=== PATIENT | male | born 1990 | race Caucasian/White ===

== ENCOUNTER 2021-03-01 10:13 | Emergency (ER) | payer BC, SELFPAY ==
--- NOTE | ~2021-03-01 | US_ITS ---
EXAMINATION: US SOFT TISSUE NECK CLINICAL INFORMATION: Left-sided painful left neck lump COMPARISON: None TECHNIQUE: Ultrasound of the left neck soft tissues is performed with high- frequency delgado-scale imaging and color Doppler. FINDINGS: There are multiple left cervical lymph nodes seen. The larger lymph nodes are prominent in size. The largest lymph node measures 2.3 x 0.8 x 1.2 cm in the lateral posterior lower neck. Lymph nodes demonstrate normal ultrasound morphology and flow. US/US soft tiss head and/or neck IMPRESSION: Multiple left cervical lymph nodes. The larger lymph nodes are prominent in size and demonstrate normal ultrasound morphology. Infectious, inflammatory and neoplastic processes should be considered. Management should be determined on a clinical basis.
[2021-03-01 10:32] VITALS: BP 128/78; PULSE 83; RESP 16; TEMP 36.9; O2SAT 100; BMI 29.8
--- NOTE | 2021-03-01 11:07 | ED_ITS ---
HPI - General Adult General Chief complaint: General Medical Stated complaint: lump on neck Time Seen by Provider: 03/01/21 11:06 Source: patient Mode of arrival: ambulatory Limitations: no limitations History of Present Illness HPI narrative: 30-year-old male presents for concerns of lumps on the left side of his neck. He noticed these lumps a few days ago, and when he touches them they are painful. Patient was seen in [facility] and found to be severely anemic 6 days ago. Patient tells me his hemoglobin at that time was 5.9, and he was transfused with 2 units of blood. States he has a primary care provider in [facility], and has an appointment with them in 4 days. Patient denies chest pain, shortness of breath, upper respiratory infection symptoms, he is being worked up for the etiology of his anemia by his PCP Related Data Allergies Allergy/AdvReac Type Severity Reaction Status Date / Time No Known Allergies Allergy Verified 03/01/21 10:31 Review of Systems Constitutional: Constitutional: Denies chills, Denies fatigue, Denies fever(s), Denies headache(s), Denies malaise and Denies weakness Eyes: Eyes: Denies diplopia ENT: Denies vertigo, Denies dizziness, Denies otalgia, Denies headache(s), Denies mouth pain, Denies post nasal drip, Denies sinus pain, Denies sinus pressure, Denies sore throat and Denies throat swelling Comments: Left neck bumps Cardiovascular: Cardiovascular: Denies chest pain, Denies syncope, Denies leg edema, Denies lightheadedness, Denies Loss of Consciousness, Denies palpitations and Denies dyspnea Respiratory: Respiratory: Denies chest congestion, Denies cough and Denies dyspnea Gastrointestinal: Gastrointestinal: Denies abdominal pain, Denies hematochezia, Denies constipation, Denies diarrhea and Denies vomiting Musculoskeletal: Musculoskeletal: Reports no additional musculoskeletal complaints Neurologic: Denies confusion, Denies vertigo, Denies dizziness, Denies syncope, Denies headache(s) and Denies weakness Psychiatric: Psychiatric: Denies anxiety, Denies confusion and Denies depression Endocrine: Endocrine: Denies fatigue and Denies palpitations Allergic/Immunologic: Allergic/Immunologic: Denies throat swelling PMFSH Past Medical History Medical History (Updated 03/01/21 @ 12:44 by BRISSA Blanc) Low hemoglobin and low hematocrit Social History Social History Advance Directives: No Physical Exam Vital Signs: Vital Signs: Last Vital Signs Temp 98.4 F 03/01/21 10:32 Pulse 83 03/01/21 10:32 Resp 16 03/01/21 10:32 BP 128/78 03/01/21 10:32 Pulse Ox 100 03/01/21 10:32 Body Mass Index 29.8 Const: General: No confusion Nutritional Appearance: well nourished Orientation/consciousness: No confusion Limitations: no limitations HENMT: Head: Yes normal to inspection, Yes normocephalic and Yes atraumatic Ears: hearing grossly normal bilaterally, external ears normal, TM's normal bilaterally and EAC's normal General nose exam: Normal external nose present Face and sinus: Yes normal facial exam and Yes sinuses nontender Mouth: Normal oral and palatal mucosa present Throat: Yes posterior oropharynx normal Eyes: Conjunctivae: conjunctivae normal Pupils: Equal, round and reactive pupils present EOM: EOMs intact bilaterally Neck: Neck: Yes full ROM, Yes trachea midline, Yes supple, No anterior neck swelling, Yes lymphadenopathy (Anterior cervical and supraclavicular), No submandibular swelling and No prominent supraclavicular fat pad Resp: Effort & Inspection: normal respiratory effort and able to speak in complete sentences Auscultation: clear to auscultation bilaterally, no crackles, no rales, no rhonchi and no wheezes Cardio: Rate: regular rate Rhythm: regular rhythm Heart sounds: S1 normal heart sound present and S2 normal heart sound present Skin: General skin exam: no rashes or lesions noted Neuro: General: No confusion Cranial nerves: Yes Equal, round and reactive pupils present Extrem: General: Yes normal to inspection and Yes full ROM Psych: Appearance: grossly normal Affect: normal affect Attitude: cooperative Thought process: Normal thought process present Course Course Course Narrative: 30-year-old male presents for bumps on the left side of his neck. Patient was found to have a low hemoglobin and was transfused 5 days ago. The etiology of his anemia is still being investigated by his primary care provider. On my exam patient has lymphadenopathy: They are discrete masses in his left anterior cervical and left supraclavicular region. Got ultrasound which describes these as enlarged lymph nodes. H&H is 9.0 and 28.2. Patient is not short of breath, no chest pain, no dizziness. US: Multiple left cervical lymph nodes. The larger lymph nodes are prominent in size and demonstrate normal ultrasound morphology. Infectious, inflammatory and neoplastic processes should be considered. Management should be determined on a clinical basis. Counseled patient to follow-up with his primary care provider, gave ultrasound result details and discharge and patient's H&H results in discharge paperwork so patient can share these with his primary care provider. Gave return precautions of shortness of breath, dizziness, chest pain. Patient verbalized agreement and understanding of Medical Decision Making Lab Data Result diagrams: 03/01/21 11:48 Labs: Lab Results 03/01/21 Range/Units 11:48 WBC 4.2 L (4.8-10.8) X10*3/uL RBC 2.77 L (4.60-5.80) X10*6/uL Hgb 9.0 L (14.0-18.0) g/dl Hct 28.2 L (42-52) % MCV 101.8 H (80-98) fL MCH 32.5 (27.0-33.0) pg MCHC 31.9 (31.0-36.0) g/dl RDW 24.7 H (11.0-16.0) % Plt Count 226 (160-400) X10*3/uL MPV 11.2 (9.4-12.4) fL Immature Gran % (Auto) Cancelled Neut % (Auto) Cancelled Lymph % (Auto) Cancelled [place] % (Auto) Cancelled Eos % (Auto) Cancelled Baso % (Auto) Cancelled Lymph # (Auto) Cancelled [place] # (Auto) Cancelled Eos # (Auto) Cancelled Baso # (Auto) Cancelled Abs Immat Gran (auto) Cancelled Absolute Neuts (auto) Cancelled Absolute Nucleated RBC 0.130 H (0.0-0.012) X10*3/uL Nucleated RBC % (auto) 3.1 H (0.0-0.2) /100WBC Neutrophils % (Manual) 37 L (45-73) % Band Neutrophils % 0 L (3-5) % Lymphocytes % (Manual) 50 H (20-40) % Monocytes % (Manual) 9 (2-11) % Eosinophils % (Manual) 2 (0-4) % Metamyelocytes % 1 % Myelocytes % 1 % Abs Neuts (Manual) 1.6 L (2.2-7.9) X10*3/uL Lymphocytes # (Manual) 2.1 (0.6-4.8) X10*3/uL Monocytes # (Manual) 0.4 (0.0-1.2) X10*3/uL Eosinophils # (Manual) 0.1 (0.0-0.8) X10*3/UL Nucleated RBCs 2 H (0-0) /100WBC Smudge Cells PRESENT Platelet Estimate NORMAL (NORMAL) Plt Morphology Comment NORMAL RBC Morphology NOTED Polychromasia 3+ (>5) /OIF Microcytosis 2+ (15-30) /OIF Macrocytosis 2+ (15-30) /OIF Tear Drop Cells 3+ (>5) /OIF Ovalocytes 1+ (5-14) /OIF Discharge Plan Discharge Clinical Impression: Lymphadenopathy of left cervical region Anemia Qualifiers: Anemia type: unspecified type Qualified Code(s): D64.9 - Anemia, unspecified Patient Disposition: Home, Self-Care Instructions: Lymphadenopathy (ED), Anemia (ED) Additional Instructions: Your blood work showed that your still anemic today. Your hemoglobin was 9.0, your hematocrit was 28.2. Please tell your primary care provider these values when you see them on Friday. In addition, you have lymph nodes in the left side of your neck. This could be completely benign. However, your primary care provider may want to biopsy some of these lymph nodes or refer you for further evaluation. The radiologist read your ultrasound as Multiple left cervical lymph nodes. The larger lymph nodes are prominent in size and demonstrate normal ultrasound morphology. Infectious, inflammatory and neoplastic processes should be considered. Management should be determined on a clinical basis. Please let your primary care provider know what the radiologist read your ultrasound. Please return to the emergency room for or concerning symptoms
[2021-03-01 12:16] LABS: Hematocrit 28.2 % (42-52); Mean Corpuscular HGB Conc 31.9 g/dl (31.0-36.0); Mean Corpuscular Hemoglobin 32.5 pg (27.0-33.0); Mean Corpuscular Volume 101.8 fL (80-98); Mean Platelet Volume 11.2 fL (9.4-12.4); Platelet Count 226 X10*3/uL (160-400); Red Blood Count 2.77 X10*6/uL (4.60-5.80); Red Cell Distribution Width 24.7 % (11.0-16.0); White Blood Count 4.2 X10*3/uL (4.8-10.8)
[2021-03-01 12:35] LABS: NRBC Pct Auto 3.1 /100WBC (0.0-0.2)
[2021-03-01 13:00] LABS: Band Neutrophils Percent 0 % (3-5); Eosinophils Absolute Manual 0.1 X10*3/UL (0.0-0.8); Eosinophils Percent Manual 2 % (0-4); Lymphocytes Absolute Manual 2.1 X10*3/uL (0.6-4.8); Lymphocytes Percent Manual 50 % (20-40); Macrocytosis 2+ (15-30) /OIF; Metamyelocytes Percent 1 %; Microcytosis 2+ (15-30) /OIF; Monocytes Absolute Manual 0.4 X10*3/uL (0.0-1.2); Monocytes Percent Manual 9 % (2-11); Myelocytes Percent 1 %; Neutrophils Absolute Manual 1.6 X10*3/uL (2.2-7.9); Neutrophils Percent Manual 37 % (45-73); Nucleated Red Blood Cells 2 /100WBC (0-0); RBC Morphology NOTED
[2021-03-01 13:01] LABS: Ovalocytes 1+ (5-14) /OIF; Platelet Estimate NORMAL (NORMAL); Platelet Morphology Comment NORMAL; Tear Drop Cells 3+ (>5) /OIF
[2021-03-01 13:02] LABS: Polychromasia 3+ (>5) /OIF; Smudge Cells PRESENT
== END 2021-03-01 13:11 | disposition home or self-care (01) ==
PROVIDERS: Physician Assistant; Emergency Provider Emergency Medicine
DX: R59.0 Localized enlarged lymph nodes (principal); D64.9 Anemia, unspecified; M54.2 Cervicalgia; Z79.899 Other long term (current) drug therapy
CPT/HCPCS: 36415; 76536; 85007; 85025; 85027; 99283; 99284